=== PATIENT | male | born 1965 | race Caucasian/White ===

== ENCOUNTER 2020-03-19 06:42 | Outpatient (CLI) | payer BC, SELFPAY ==
--- NOTE | 2020-03-21 11:02 | SLEEP_ITS ---
Home Sleep Test DATE OF STUDY: 03/19/2020 REFERRING PHYSICIAN: Dr. Gold Ramirez. REASON FOR THE STUDY: Hypersomnia. HISTORY: This patient is a 54-year-old male, 5 feet 8 inches tall, weighing 226 pounds with a body mass index of 34.3. He has complaints working night shifts and rotating shifts. He feels tired and sleepy in the day. He has hypertension and dyslipidemia. He occasionally snores, but rarely is loud enough for others to complain about it. He does not awaken at night with belching, coughing or feeling short of breath. He occasionally has trouble sleeping with a cold. He does not gasp for breath at night or sweat excessively at night. He does not notice his heart pounding or beating irregularly at night. He rarely falls asleep during the day, never involuntarily or while driving. He does not have loss of muscle tone with strong emotion. He does not have daytime difficulty due to excessive sleepiness as far as his job. He does not feel paralyzed on waking or falling asleep. He rarely has vivid dreamlike scenes upon awakening or falling asleep. He is never afraid to go to sleep. He occasionally has nightmares. He frequently remembers his dreams. He occasionally has racing thoughts. He rarely feels sad, depressed, anxious, rarely has muscular tension or notices parts of his body jerking. He rarely kicks at night. He occasionally has crawly achy feelings in his legs. He occasionally has leg pain at night. He does not have morning jaw pain and does not grind his teeth at night. He is not bothered by pain during the day. He is not awakened by pain at night. He occasionally wakes up feeling stiff in the morning, rarely with sore achy muscles, but never with pain in the neck and spine. Normal bedtime is between 9:30 and 10 p.m., taking 30 minutes to fall asleep, waking twice at night for 5 to 10 minutes. During that time, he will use the bathroom or reposition. He usually wakes up on weekdays between 4:30 or 7:30 in the morning. Weekend schedule may be slightly different, staying up until midnight instead of 10 p.m. He works every other weekend and he will have some work days off during the week. He estimates 6 hours of sleep on an average night. He does not take naps. A short nap might be refreshing. Most of the time he feels good in the morning. He feels better in the afternoon than in the morning. MEDICAL COMORBIDITIES: Hypertension. MEDICATIONS: Metoprolol 50 mg a day. Hyperlipidemia is currently not treated. HABITS: Never smoked tobacco. Caffeine, 1 serving per day. No alcohol. DESCRIPTION OF THE STUDY: On the [place] Sleepiness Scale, the score is 6. This was conducted as an unattended type III portable home sleep test using 4-channel monitoring including respiratory effort channel, snoring channel, oxygen desaturation channel, and heart rate channel. This study was scored using [facility] guidelines. Duration was 6 hours 32 minutes. The apnea-hypopnea index is 10.1 elevated, the respiratory disturbance index is 14.5, elevated, oxygen desaturation index 8.1 with a minimum desaturation to 89% which is low. Average saturation was 94%. He had 32 apneas. 75% of his apneas or 24 were central, 22% of his apneas or 7 were obstructive, he had 1 mixed apnea for 3% of his apneas. He had 34 hypopneas. He had 3313 flow-limited breaths without snoring, 113 snoring events, and 53 desaturations of 4% or greater, but spent no time below 88% saturation. Heart rate ranged from 52 to 105. IMPRESSION: This home sleep test shows evidence of at least mild sleep-disordered breathing G47.33. The scoring showed the majority of the apneas, 75% were central. It is difficult to tell for certain on a home sleep test as it is not known whether or not the jaci
== END 2020-03-19 06:43 | disposition home or self-care (01) ==
LOC: ANHCSM 06:42
PROVIDERS: Visit Provider Internal Medicine Cardiovascular Disease
DX: G47.33 Obstructive sleep apnea (adult) (pediatric) (principal)
CPT/HCPCS: 95806

== ENCOUNTER 2020-11-28 20:19 | Emergency (ER) | payer BC, SELFPAY ==
--- NOTE | ~2020-11-28 | CT_ITS ---
EXAMINATION: CT brain wo con DATE: 11/28/2020 20:59 INDICATION: Lopez's palsy. TECHNIQUE: Computed tomography (CT) of the head was performed without intravenous contrast. The mA wa s adjusted according to patient size. Iterative reconstruction technique was employed. The dose-lengt h product was 681.00 mGy-cm. COMPARISON: None FINDINGS: There is no intracranial hemorrhage, acute infarction, or abnormal intracranial mass lesion . The ventricles are normal in size. Cavum septum callosum and vergae are noted. The orbits are carolyn l. The mastoid air cells are normal. There is mild mucosal thickening in the ethmoid sinuses. IMPRESSION: 1. Normal brain. Reviewed, dictated and finalized at location A. IMPRESSION: 1. Normal brain.
[2020-11-28 20:23] VITALS: BP 174/72; PULSE 84; RESP 18; TEMP 36.2; O2SAT 100
--- NOTE | 2020-11-28 20:55 | ED.NEUROSD ---
HPI - Neuro Symptoms/Deficit General Chief Complaint: Neuro Symptoms/Deficit Stated Complaint: L side of face numbness Time Seen by Provider: 11/28/20 20:42 Source: patient and RN notes reviewed Mode of arrival: ambulatory History of Present Illness HPI Narrative: Patient is 55 years old white male presents with sudden onset of left facial paralysis that started yesterday involving the upper and lower part of the face. Patient also complaining of poor left eyelid motion, tingling/numbness of the mouth/buccal region, Patient denies any fever, chills, nausea, vomiting, numbness tingling or anywhere else in the body. Related Data Allergies Allergy/AdvReac Type Severity Reaction Status Date / Time No Known Allergies Allergy Verified 11/28/20 20:27 Review of Systems Review of Systems: Narrative: CONSTITUTIONAL: Denies fever, chills, or sweats. EYES: Denies visual changes, redness, or discharge. ENT: Denies rhinorrhea, congestion, sore throat, or otalgia. CARDIOVASCULAR: Denies chest pain, palpitations, or edema. RESPIRATORY: Denies cough or dyspnea. GASTROINTESTINAL: Denies abdominal pain, nausea, vomiting, or diarrhea. GENITOURINARY: Denies dysuria or hematuria. SKIN: Denies rash or itching. MUSCULOSKELETAL: Denies back pain, joint pain, or myalgia. NEUROLOGIC: Denies headache, numbness, or weakness. PSYCHIATRIC: Denies anxiety or depression. PMFSH Past Medical History Medical History Hyperlipidemia Family History Family History Father Carcinoma of colon Mother Cirrhosis of liver Social History Social History Smoking status: Never smoker Alcohol intake: current Exam Narrative: Exam Narrative: General appearance: Well-developed, well-nourished Skin: Normal color Head: Normocephalic, nontraumatic Eyes: Clear conjunctiva ENT: Oropharynx normal, ears normal, nose normal Neck: Supple, nontender Chest and respiratory: Airway patent, no respiratory distress, no accessory muscle use Heart: Regular rate/rhythm Abdomen: Soft, nontender, no organomegaly, quiet bowel sounds Vascular: Normal peripheral pulses, normal capillary refill. Musculoskeletal: Normal range of motion, nontender back Neurologic: Alert and oriented ?3, facial exam showed paralysis left side of the face including forehead and lower face. Inability to smile on the left side., Drooling on the left side., Inability to close eyelids on the left side. 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 Labs, CT head ordered. Further plan to follow Lab Data Result diagrams: 11/28/20 21:08 Labs: Lab Results 11/28/20 11/28/20 11/28/20 Range/Units 21:08 21:08 21:08 WBC 7.1 (4.5-10.0) K/mm3 RBC 4.82 (4.6-6.20) M/mm3 Hgb 14.9 (14.0-18.0) g/dL Hct 44.6 (42.0-52.0) % MCV 92.5 (80-100) fl MCH 30.9 (26-34) pg MCHC 33.4 (32-36) g/dl RDW 13.1 (11.5-14.5) % Plt Count 156 (150-375) k/mm3 MPV 9.3 (7.4-10.
[2020-11-28 21:25] LABS: Basophils Percent Auto 0.6 % (0.2-1.2); Eosinophils Absolute Auto 0.1 K/mm3 (0-0.3); Eosinophils Percent Auto 1.5 % (0-4.4); Hematocrit 44.6 % (42.0-52.0); Hemoglobin 14.9 g/dL (14.0-18.0); Immature Granulocyte Absolute 0.01 K/mm3 (0.00-0.031); Immature Granulocyte Percent A 0.1 % (0-0.5); Immature Platelet Fraction Pct 1.8 % (0.9-11.2); Lymphocytes Absolute Auto 1.73 K/mm3 (0.9-3.2); Lymphocytes Percent Auto 24.3 % (18.3-44.2); Mean Corpuscular HGB Conc 33.4 g/dl (32-36); Mean Corpuscular Hemoglobin 30.9 pg (26-34); Mean Corpuscular Volume 92.5 fl (80-100); Mean Platelet Volume 9.3 fl (7.4-10.4); Monocytes Absolute Auto 0.9 K/mm3 (0.1-0.6); Monocytes Percent Auto 12.2 % (2.6-8.5); Neutrophils Absolute Auto 4.4 K/mm3 (1.3-6.7); Neutrophils Percent Auto 61.3 % (45.5-73.1); Platelet Count Result 156 k/mm3 (150-375); Red Blood Count 4.82 M/mm3 (4.6-6.20); Red Cell Distribution Width 13.1 % (11.5-14.5); White Blood Count 7.1 K/mm3 (4.5-10.0)
[2020-11-28 21:45] LABS: Hemoglobin A1C 4.9 % (<5.7)
[2020-11-28] MEDS: predniSONE 20 MG TABLET 60 MG PO (22:13)
[2020-11-28 22:29] VITALS: BP 169/70; PULSE 70; RESP 18; O2SAT 97
== END 2020-11-28 22:31 | disposition home or self-care (01) ==
LOC: ANHED 21:12
PROVIDERS: Emergency Provider Emergency Medicine; PCP Family Medicine
DX: G51.0 Bell's palsy (principal); E78.5 Hyperlipidemia, unspecified
CPT/HCPCS: 36415; 70450; 83036; 84443; 85025; 85055; 99284; J7512

== ENCOUNTER 2021-01-07 14:44 | Outpatient (CLI) | payer BC, SELFPAY ==
--- NOTE | 2021-01-07 14:57 | ECHO_ITS ---
Patient Info Name: Kartik Huang Age: 55 years : 1965 Gender: Male Ht: 68 in Wt: 220 lbs BSA: 2.22 m2 HR: 63 bpm BP: 163 / 91 mmHg Technical Quality: Good Exam Date: 01/07/2021 3:00 PM Exam Location: [facility] Patient Status: Outpatient Admit Date: 01/07/2021 Staff Ordering Physician: Gold Ramirez DO Assistant [employer] Superintendent: NINA Attending Provider: Gold Ramirez DO Referring Physician: James WHITMORE; Exam Type: CA echo dop color flow w con Study Info Indications R06.02 - Shortness of breath Complete two-dimensional, color flow and Doppler transthoracic echocardiogram is performed. Summary 1. Complete two-dimensional, color flow and Doppler transthoracic echocardiogram is performed. 2. Left ventricular chamber dimension is normal. 3. Left ventricular systolic function is normal, estimated at 60-65%. 4. The left ventricular diastolic function is normal. 5. E/e' 6 is not elevated. 6. There is trace tricuspid valve regurgitation. 7. No pulmonary hypertension, estimated pulmonary arterial systolic pressure is 32 mmHg. Left Ventricle E/e' 6 is not elevated. Left ventricular chamber dimension is normal. Left ventricular systolic function is normal, estimated at 60-65%. The left ventricular diastolic function is normal. Right Ventricle Right ventricular chamber dimension is normal. Right ventricular systolic function is normal. Left Atria Left atrial chamber dimension is normal. Right Atria Right atrial chamber dimension is normal. Aortic Valve The aortic valve is trileaflet. There is no aortic valve stenosis. There is no aortic valve regurgitation. Pulmonic Valve There is no pulmonic regurgitation. Mitral Valve There is no mitral valve stenosis. There is no mitral valve regurgitation. Tricuspid Valve There is trace tricuspid valve regurgitation. No pulmonary hypertension, estimated pulmonary arterial systolic pressure is 32 mmHg. Pericardium/Pleural There is no pericardial effusion. Inferior Vena Cava Normal inferior vena cava with >50% collapse upon inspiration consistent with normal right atrial pressure, 5 mmHg. Aorta The aortic root size at the sinus of Valsalva is normal. Left Ventricular Outflow Tract Name Value Normal LVOT 2D LVOT Diameter 2.22 cm LVOT Doppler LVOT Peak Gradient 5 mmHg LVOT Mean Gradient 3 mmHg LVOT VTI 23.91 cm LVOT VTI/AV VTI Ratio 0.69 LVOT Stroke Volume 92.32 ml LVOT CO 6.19 l/min LVOT CI 2.79 L/min/m2 Pulmonic Valve Name Value Normal PV Doppler PV Peak Gradient 5 mmHg Mitral Valve
== END 2021-01-07 14:45 | disposition home or self-care (01) ==
PROVIDERS: PCP Family Medicine; Visit Provider Internal Medicine Cardiovascular Disease
DX: G47.31 Primary central sleep apnea (principal); R06.02 Shortness of breath
CPT/HCPCS: 93306